=== PATIENT | female | born 1995 | race Caucasian/White ===

== ENCOUNTER 2016-07-28 23:00 | Emergency (ER) | payer OTHER ==
[~2016-07-28] VITALS: Ht 170.2 cm; Wt 68.1 kg
[~2016-07-28 23:00] MED LIST: LOESTRIN 1/21 TABLET PO
[2016-07-28 23:23] LABS: ADD MIUA? YES; BILIRUBIN NEGATIVE; BLOOD SMALL; COLOR YELLOW ((YELLOW)); GLUCOSE (STRIP) NEGATIVE; KETONES 5; LEUKOCYTES TRACE; NITRITE NEGATIVE; PROTEIN (STRIP) NEGATIVE; SPECIFIC GRAVITY 1.008 (1.000-1.030); UROBILINOGEN 0.2 MG/DL (0.2-1.0)
[2016-07-28 23:28] LABS: BACTERIA NONE SEEN /HPF; EPITHELIAL CELLS RARE /HPF; MUCUS TRACE /LPF; RED BLOOD CELLS 0-5 /HPF (0-5); UCUL ADDED? NO; WHITE BLOOD CELLS 0-5 /HPF (0-5)
[2016-07-29 01:25] LABS: INTERNAL CONTROL VALID? YES
[2016-07-29 01:35] LABS: HEMATOCRIT 34.4 % (36.0-46.0); MCH 30.6 PG (29.0-34.0); MCHC 33.4 G/DL (30.0-36.0); MCV 91.5 FL (83-99); MEAN PLAT.VOLUME 10.3 uM^3 (9.5-12.4); PLATELET COUNT 220 K/uL (156-360); RBC DIS.WIDTH-CV 11.6 % (11.8-14.6); RBC DIS.WIDTH-SD 38.6 % (39-53); RED BLOOD COUNT 3.76 M/uL (3.80-5.20); WHITE BLOOD COUNT 6.5 K/uL (4.1-10.2)
[2016-07-29 01:47] LABS: CHLORIDE 104 mEq/L (99-109); POTASSIUM 4.1 mEq/L (3.7-5.4); SODIUM 136 mEq/L (136-147)
[2016-07-29 01:49] LABS: GLUCOSE 126 mg/dL (70-99)
[2016-07-29 01:51] LABS: ANION GAP 10 MEQ/L (2-14); TOTAL BILIRUBIN 0.3 mg/dL (0.0-1.0)
[2016-07-29 01:53] LABS: ALKALINE PHOSPHATASE 43 IU/L (3-129); GFR ESTIMATE (CALCULATED) > 59 mL/min/
[2016-07-29 01:54] LABS: UREA NITROGEN (BUN) 11 mg/dL (9-23)
[2016-07-29 01:57] LABS: LIPASE 25 U/L (1.0-51.0)
[2016-07-29] MEDS ORDERED: MOTRIN600 MG PO (03:43)
[2016-07-29] MEDS ORDERED: ULTRACET1 TABLET PO (03:43)
[2016-07-29 03:52] VITALS: BP 120/84
== END 2016-07-29 03:52 | disposition home or self-care (01) ==
LOC: EME 23:00
PROVIDERS: Physician Assistant
DX: R10.9 Unspecified abdominal pain (principal); R31.9 Hematuria, unspecified
CPT/HCPCS: 74176; 80053; 81003; 83690; 84703; 85027; 99281; 99284; J1885

== ENCOUNTER 2016-07-31 23:21 | Emergency (ER) | payer OTHER ==
[~2016-07-31] VITALS: Ht 167.6 cm; Wt 67.9 kg
[~2016-07-31 23:21] MED LIST changes: +MOTRIN600 MG PO; +ULTRACET1 TABLET PO
[2016-07-31 23:47] LABS: HEMATOCRIT 38.8 % (36.0-46.0); MCH 30.3 PG (29.0-34.0); MCHC 32.7 G/DL (30.0-36.0); MCV 92.6 FL (83-99); MEAN PLAT.VOLUME 10.3 uM^3 (9.5-12.4); PLATELET COUNT 244 K/uL (156-360); RBC DIS.WIDTH-CV 11.6 % (11.8-14.6); RBC DIS.WIDTH-SD 39.2 % (39-53); RED BLOOD COUNT 4.19 M/uL (3.80-5.20)
[2016-07-31 23:59] LABS: CHLORIDE 107 mEq/L (99-109); POTASSIUM 4.2 mEq/L (3.7-5.4); SODIUM 140 mEq/L (136-147)
[2016-08-01 00:03] LABS: ANION GAP 9 MEQ/L (2-14); GLUCOSE 84 mg/dL (70-99)
[2016-08-01 00:05] LABS: GFR ESTIMATE (CALCULATED) > 59 mL/min/
[2016-08-01 00:06] LABS: UREA NITROGEN (BUN) 11 mg/dL (9-23)
[2016-08-01 00:06] LABS: ADD MIUA? NO; BILIRUBIN NEGATIVE; BLOOD NEGATIVE; COLOR YELLOW ((YELLOW)); GLUCOSE (STRIP) NEGATIVE; KETONES NEGATIVE; LEUKOCYTES NEGATIVE; NITRITE NEGATIVE; PROTEIN (STRIP) NEGATIVE; SPECIFIC GRAVITY 1.011 (1.000-1.030); UCUL ADDED? NO; UROBILINOGEN 0.2 MG/DL (0.2-1.0)
[2016-08-01] MEDS ORDERED: ZANTAC150 MG PO (03:01)
[2016-08-01] MEDS ORDERED: COLACE100 MG PO (03:01)
[2016-08-01] MEDS ORDERED: TYLENOL WITH C1 EACH PO (03:01)
[2016-08-01 03:19] VITALS: BP 124/74
== END 2016-08-01 03:21 | disposition home or self-care (01) ==
LOC: EME 23:21
DX: R10.9 Unspecified abdominal pain (principal); K92.0 Hematemesis; Z79.3 Long term (current) use of hormonal contraceptives
CPT/HCPCS: 76856; 80048; 81003; 85027; 99281; 99284

== ENCOUNTER 2016-09-06 20:35 | Emergency (ER) | payer OTHER ==
[~2016-09-06] VITALS: Ht 170.2 cm; Wt 66.6 kg
[~2016-09-06 20:35] MED LIST changes: +COLACE100 MG PO; +TYLENOL WITH C1 EACH PO; +ZANTAC150 MG PO
[2016-09-06 21:00] LABS: HEMATOCRIT 41.5 % (36.0-46.0); MCH 30.2 PG (29.0-34.0); MCV 91.6 FL (83-99); MEAN PLAT.VOLUME 10.5 uM^3 (9.5-12.4); PLATELET COUNT 248 K/uL (156-360); RBC DIS.WIDTH-SD 40.3 % (39-53); RED BLOOD COUNT 4.53 M/uL (3.80-5.20)
[2016-09-06 21:12] LABS: ADD MIUA? YES; BILIRUBIN NEGATIVE; BLOOD MODERATE; COLOR YELLOW ((YELLOW)); GLUCOSE (STRIP) NEGATIVE; KETONES NEGATIVE; LEUKOCYTES NEGATIVE; NITRITE NEGATIVE; PROTEIN (STRIP) NEGATIVE; SPECIFIC GRAVITY 1.019 (1.000-1.030); UROBILINOGEN 0.2 MG/DL (0.2-1.0)
[2016-09-06 21:12] LABS: CHLORIDE 105 mEq/L (99-109); SODIUM 141 mEq/L (136-147)
[2016-09-06 21:14] LABS: GLUCOSE 107 mg/dL (70-99)
[2016-09-06 21:16] LABS: ANION GAP 10 MEQ/L (2-14); TOTAL BILIRUBIN 0.2 mg/dL (0.0-1.0)
[2016-09-06 21:18] LABS: ALKALINE PHOSPHATASE 47 IU/L (3-129); GFR ESTIMATE (CALCULATED) > 59 mL/min/
[2016-09-06 21:19] LABS: UREA NITROGEN (BUN) 14 mg/dL (9-23)
[2016-09-06 21:20] LABS: BACTERIA NONE SEEN /HPF; EPITHELIAL CELLS RARE /HPF; MUCUS TRACE /LPF; RED BLOOD CELLS 0-5 /HPF (0-5); UCUL ADDED? NO; WHITE BLOOD CELLS 0-5 /HPF (0-5)
[2016-09-06 21:21] LABS: LIPASE 32 U/L (1.0-51.0)
[2016-09-06 21:27] LABS: QUANTITATIVE HCG < 4.0 MIU/ML
[2016-09-06] MEDS ORDERED: BENTYL20 MG PO (23:20)
[2016-09-06] MEDS ORDERED: ZOFRAN ODT4 MG PO (23:20)
[2016-09-06 23:43] VITALS: BP 00/0
== END 2016-09-06 23:45 | disposition home or self-care (01) ==
LOC: EME 20:35
DX: R10.30 Lower abdominal pain, unspecified (principal); R11.2 Nausea with vomiting, unspecified; R19.7 Diarrhea, unspecified; Z87.442 Personal history of urinary calculi
CPT/HCPCS: 74177; 80053; 81003; 83690; 84702; 85027; 87493; 87506; 99281; 99285; J1200; J1885; J2405; J7030; Q0177

== ENCOUNTER 2017-08-09 17:56 | Emergency (ER) | payer OTHER ==
[~2017-08-09] VITALS: Ht 170.2 cm; Wt 65.5 kg
[~2017-08-09 17:56] MED LIST changes: +BENTYL20 MG PO; +ZOFRAN ODT4 MG PO
[2017-08-09 19:20] LABS: ALBUMIN 4.2 g/dL (3.2-4.8); CHLORIDE 105 mEq/L (99-109); POTASSIUM 3.9 mEq/L (3.7-5.4)
[2017-08-09 19:21] LABS: SODIUM 141 mEq/L (136-147)
[2017-08-09 19:22] LABS: HEMATOCRIT 38.4 % (36.0-46.0); HEMOGLOBIN 13.2 G/DL (11.9-15.5); MCH 32.1 PG (29.0-34.0); MCHC 34.4 G/DL (30.0-36.0); MCV 93.4 FL (83-99); PLATELET COUNT 275 K/uL (156-360); RBC DIS.WIDTH-CV 12.3 % (11.8-14.6); RBC DIS.WIDTH-SD 42.3 % (39-53); RED BLOOD COUNT 4.11 M/uL (3.80-5.20); WHITE BLOOD COUNT 8.1 K/uL (4.1-10.2)
[2017-08-09 19:23] LABS: GLUCOSE 102 mg/dL (70-99); TOTAL PROTEIN 7.4 g/dL (6.4-8.3)
[2017-08-09 19:25] LABS: TOTAL BILIRUBIN 0.3 mg/dL (0.0-1.0)
[2017-08-09 19:26] LABS: ALKALINE PHOSPHATASE 49 IU/L (3-129); CREATININE 0.8 mg/dL (0.6-1.3); GFR ESTIMATE (CALCULATED) > 59 mL/min/
[2017-08-09 19:28] LABS: AST (GOT) 16 IU/L (2-34); UREA NITROGEN (BUN) 12 mg/dL (9-23)
[2017-08-09 19:29] LABS: ALT (GPT) 11 IU/L (3-49)
[2017-08-09 19:37] LABS: QUANTITATIVE HCG < 4.0 MIU/ML
[2017-08-09 19:58] LABS: APPEARANCE CLEAR ((CLEAR)); BILIRUBIN NEGATIVE; BLOOD NEGATIVE; COLOR YELLOW ((YELLOW)); GLUCOSE (STRIP) NEGATIVE; KETONES NEGATIVE; LEUKOCYTES SMALL; NITRITE NEGATIVE; PROTEIN (STRIP) NEGATIVE; SPECIFIC GRAVITY 1.021 (1.000-1.030); UROBILINOGEN 0.2 MG/DL (0.2-1.0)
[2017-08-09 20:08] LABS: BACTERIA RARE /HPF; EPITHELIAL CELLS 1+ /HPF; MUCUS TRACE /LPF; RED BLOOD CELLS 0-5 /HPF (0-5); UCUL ADDED? YES
[2017-08-09 21:25] LABS: LIPASE 22 U/L (1.0-51.0)
[2017-08-09] MEDS ORDERED: CIPRO500 MG PO (22:26)
[2017-08-09] MEDS ORDERED: ZOFRAN4 MG PO (22:26)
[2017-08-09] MEDS ORDERED: FLAGYL500 MG PO (22:26)
[2017-08-09 22:34] VITALS: BP 118/102
== END 2017-08-09 22:37 | disposition home or self-care (01) ==
LOC: EME 17:56
PROVIDERS: Physician Assistant Medical
DX: K52.9 Noninfective gastroenteritis and colitis, unspecified (principal); R19.5 Other fecal abnormalities; Z87.442 Personal history of urinary calculi; Z88.2 Allergy status to sulfonamides; Z88.0 Allergy status to penicillin
CPT/HCPCS: 74177; 80053; 81003; 83690; 84702; 85027; 87086; 87177; 87493; 87506; 99281; 99284; J2405; J7030